=== PATIENT | female | born 2000 | race Caucasian/White ===

== ENCOUNTER 2020-02-19 23:03 | Emergency (ER) | payer MEDICAID ==
[~2020-02-19] VITALS: Ht 157.5 cm; Wt 56.7 kg
[2020-02-19 23:15] VITALS: BP_SYST 121
[2020-02-20] MEDS ORDERED: DIPH-TET-PERTUS Vaccine 0.5 ML VIAL (ADACEL) I.M. ONE (00:30)
[2020-02-20] MEDS ORDERED: BACITRACIN ZINC 15 GM TOPICAL OINTMENT TP ONE (00:30)
[2020-02-20 00:42] VITALS: BP_SYST 121
[2020-02-20] MEDS ORDERED: CEPHALEXIN 500 MG CAPSULE PO ONE (00:45)
== END 2020-02-20 00:42 | disposition home or self-care (01) ==
LOC: SED 23:03
DX: S81.811A Laceration without foreign body, right lower leg, initial encounter (principal); W19.XXXA Unspecified fall, initial encounter; Y93.89 Activity, other specified; Y92.89 Other specified places as the place of occurrence of the external cause; Y99.8 Other external cause status
CPT/HCPCS: 36415; 73590-TC; 81025; 84702-TC; 90715; 99283; 99284

== ENCOUNTER 2020-07-03 18:29 | Emergency (ER) | payer BC, MEDICAID ==
[~2020-07-03] VITALS: Ht 157.5 cm; Wt 52.2 kg
[2020-07-03 21:00] VITALS: BP_SYST 135
[2020-07-04] MEDS ORDERED: KETOROLAC TROMETHAMINE 15 MG VIAL IM ONE (01:30)
[2020-07-04] MEDS ORDERED: KETOROLAC TROMETHAMINE 15 MG VIAL ONE (02:00)
[2020-07-04 02:46] VITALS: BP_SYST 127
== END 2020-07-04 02:46 | disposition home or self-care (01) ==
LOC: SED 18:29
DX: S22.31XA Fracture of one rib, right side, initial encounter for closed fracture (principal); Z88.1 Allergy status to other antibiotic agents; X58.XXXA Exposure to other specified factors, initial encounter; Y93.89 Activity, other specified; Y92.89 Other specified places as the place of occurrence of the external cause; Y99.8 Other external cause status
CPT/HCPCS: 71045; 71100; 81025; 96372; 99284; J1885

== ENCOUNTER 2020-07-10 16:40 | Emergency (ER) | payer BC ==
[~2020-07-10] VITALS: Ht 157.5 cm; Wt 52.2 kg
[2020-07-10 16:52] VITALS: BP_SYST 123
--- NOTE | 2020-07-10 17:05 | NUR ---
Patient to ER bed H1 to gown for evaluation. Side rails up.
--- NOTE | 2020-07-10 17:10 | NUR ---
RECEIVED AND IN ROOM. PT HERE FOR C/O RIB PAIN. SHE WAS SEEN RECENTLY AT ON LICENSE OF [facility] FOR SAME COMPLAINT, WANTS REPEAT X-RAY TO SEE IF ITS BETTER. NO CHANGE IN CONDITION
--- NOTE | 2020-07-10 17:15 | NUR ---
DR BUENROSTRO IN TO ASSESS. PT CALM AND COOPERATIVE
[2020-07-10 17:40] VITALS: BP_SYST 124
--- NOTE | 2020-07-10 17:40 | NUR ---
Patient given written and verbal discharge instructions and verbalizes understanding. ER MD discussed with patient the results and treatment provided. Patient in stable condition. ID arm band removed. Patient educated on pain management and to follow up with PMD. Pain Scale . Opportunity for questions provided and answered.
== END 2020-07-10 17:40 | disposition home or self-care (01) ==
LOC: SED 16:40
DX: R07.81 Pleurodynia (principal); R09.1 Pleurisy; Z88.1 Allergy status to other antibiotic agents
CPT/HCPCS: 99281

== ENCOUNTER 2022-12-30 11:47 | Emergency (ER) | payer BC ==
[~2022-12-30] VITALS: Ht 157.5 cm; Wt 52.2 kg
[2022-12-30 12:00] VITALS: BP_SYST 112
[2022-12-30] MEDS ORDERED: IBUP-1969 PO (13:07)
[2022-12-30 13:24] VITALS: BP_SYST 112
== END 2022-12-30 13:24 | disposition home or self-care (01) ==
LOC: SED 11:47
DX: S93.511A Sprain of interphalangeal joint of right great toe, initial encounter (principal); S90.31XA Contusion of right foot, initial encounter; Z79.899 Other long term (current) drug therapy; W22.8XXA Striking against or struck by other objects, initial encounter; Y93.89 Activity, other specified; Y92.89 Other specified places as the place of occurrence of the external cause; Y99.8 Other external cause status
CPT/HCPCS: 81025; 99283